=== PATIENT | male | born 1975 | race Caucasian/White ===

== ENCOUNTER 2023-04-18 16:18 | Emergency (ER) | payer OTHER ==
[~2023-04-18] VITALS: Ht 182.9 cm; Wt 113.0 kg
[2023-04-18] MEDS ORDERED: MELO15TA28 (16:53)
[2023-04-18] MEDS ORDERED: ETAN50PE (16:53)
[2023-04-18] MEDS ORDERED: ALLE60TA69 PO (16:53)
[2023-04-18] MEDS ORDERED: NS 1,000 ML IV ONE (17:00)
[2023-04-18] MEDS ORDERED: FAMOTIDINE 20MG/2ML VIAL IVP ONE (17:05)
[2023-04-18] MEDS ORDERED: methylPREDNISolone 125MG 2ML VIAL IV ONE (17:05)
[2023-04-18] MEDS ORDERED: diphenhydrAMINE 50MG/ML VIAL IV ONE (17:05)
[2023-04-18 17:13] LABS: BASO % 0.1 % (0.0-1.0); EOS # 0.1 10^3/uL (0.0-0.5); EOS % 0.9 % (0.0-3.0); HEMATOCRIT 46.5 % (42.0-52.0); HEMOGLOBIN 15.7 g/dl (13.5-17.5); LYMPH # 3.8 10^3/uL (1.5-5.0); LYMPH % 38.3 % (24.0-44.0); MEAN CORPUSCULAR HEMOGLOBIN 27.8 pg (27.0-33.0); MEAN CORPUSCULAR HGB CONC 33.8 g/dl (32.0-36.5); MEAN CORPUSCULAR VOLUME 82.3 fl (80.0-96.0); MONO # 0.7 10^3/uL (0.0-0.8); MONO % 7.5 % (2.0-8.0); NEUTROPHILS # 5.2 10^3/uL (1.5-8.5); NEUTROPHILS % 52.7 % (36.0-66.0); PLATELET COUNT, AUTOMATED 321 10^3/uL (150-450); RED BLOOD COUNT 5.65 10^6/uL (4.30-6.10); WHITE BLOOD COUNT 9.9 10^3/uL (4.0-10.0)
[2023-04-18 17:19] LABS: BLOOD UREA NITROGEN 21 MG/DL (9-23); CALCIUM LEVEL 9.4 MG/DL (8.5-10.1); CARBON DIOXIDE LEVEL 23 MMOL/L (20-31); CHLORIDE LEVEL 108 MMOL/L (98-107); CREATININE FOR GFR 1.06 MG/DL (0.70-1.30); GLOMERULAR FILTRATION RATE > 60.0 (>60); GLUCOSE, FASTING 121 MG/DL (60-100); POTASSIUM SERUM 4.3 MMOL/L (3.5-5.1); SODIUM LEVEL 142 MMOL/L (136-145)
[2023-04-18 18:00] VITALS: TEMP 97.8
[2023-04-18] MEDS ORDERED: EPIP0.3I2 IM (18:58)
[2023-04-18 19:15] VITALS: BP 131/80; O2SAT 98
== END 2023-04-18 19:37 | disposition home or self-care (01) ==
LOC: M ED 16:18
DX: T63.441A Toxic effect of venom of bees, accidental (unintentional), initial encounter (principal); Z91.030 Bee allergy status; Z91.048 Other nonmedicinal substance allergy status; Z79.899 Other long term (current) drug therapy
CPT/HCPCS: 80047; 80048; 85025; 93005; 93041; 94760; 96361; 96374; 96375; 99285; J1200; J2930; S0028